=== PATIENT | female | born 2000 | race Caucasian/White ===

== ENCOUNTER 2019-07-12 15:02 | Emergency (ER) | payer OTHER ==
[~2019-07-12] VITALS: Ht 162.6 cm; Wt 65.3 kg
[2019-07-12] MEDS ORDERED: METOCLOPRAMIDE INJ 10MG/2ML VIAL (J2765) IV ONE (17:30)
[2019-07-12 18:04] LABS: BASO % 0.5 % (0.0-1.0); EOS # 0.1 10^3/uL (0.0-0.5); EOS % 0.9 % (0.0-3.0); HEMATOCRIT 40.9 % (36.0-47.0); LYMPH # 1.8 10^3/uL (1.5-5.0); LYMPH % 23.7 % (24.0-44.0); MEAN CORPUSCULAR HEMOGLOBIN 27.2 pg (27.0-33.0); MEAN CORPUSCULAR HGB CONC 31.8 g/dl (32.0-36.5); MEAN CORPUSCULAR VOLUME 85.6 fl (80.0-96.0); MONO # 0.4 10^3/uL (0.0-0.8); MONO % 5.2 % (0.0-5.0); NEUTROPHILS # 5.3 10^3/uL (1.5-8.5); NEUTROPHILS % 69.4 % (36.0-66.0); PLATELET COUNT, AUTOMATED 271 10^3/uL (150-450); RED BLOOD COUNT 4.78 10^6/uL (4.00-5.40); WHITE BLOOD COUNT 7.6 10^3/uL (4.0-10.0)
[2019-07-12 19:39] VITALS: BP 105/62
== END 2019-07-12 19:50 | disposition home or self-care (01) ==
LOC: M ED 15:02
DX: O21.9 Vomiting of pregnancy, unspecified (principal); Z3A.01 Less than 8 weeks gestation of pregnancy
CPT/HCPCS: 80047; 84702; 85025; 96374; 99284; J2765

== ENCOUNTER → 2020-02-03 | Outpatient (CLI) | payer OTHER ==
[~2020-02-03] MED LIST: DIBU10OI TOP; DOCU100C16 PO; IBUP80TA PO; IRON27TA2 PO; MULTTAB20 PO; NON-325T5 PO; ONDA4TAB6 PO; SERT-141 PO; VITA250T4 PO
[2020-03-25 20:43] LABS: APPEARANCE, URINE CLEAR (CLEAR); BACTERIA, URINE AUTO NEGATIVE (NEGATIVE); BILIRUBIN, URINE AUTO NEGATIVE (NEGATIVE); BLOOD, URINE BLOOD NEGATIVE (NEGATIVE); COLOR, URINE STRAW (YELLOW); GLUCOSE, URINE (UA) AUTO NEGATIVE (NEGATIVE); KETONE, URINE AUTO NEGATIVE (NEGATIVE); LEUKOCYTE ESTERASE, URINE AUTO NEGATIVE (NEGATIVE); NITRITE, URINE AUTO NEGATIVE (NEGATIVE); PROTEIN, URINE AUTO NEGATIVE (NEGATIVE); RBC, URINE AUTO 0 /HPF (0-3); SPECIFIC GRAVITY URINE AUTO 1.005 (1.002-1.035); SQUAMOUS EPITHELIAL CELL UR AU 2 /HPF (0-6); UROBILINOGEN, URINE AUTO 0.2 mg/dL (0.0-2.0); WBC, URINE AUTO 1 /HPF (0-3)
== END ==
LOC: M LDO 17:00
PROVIDERS: ATTEND Obstetrics & Gynecology
DX: O26.893 Other specified pregnancy related conditions, third trimester (principal); N88.9 Noninflammatory disorder of cervix uteri, unspecified; Z3A.34 34 weeks gestation of pregnancy
CPT/HCPCS: 59025; 81001; 87086; 87210; G0378; G0463

== ENCOUNTER → 2020-02-06 | Outpatient (CLI) | payer OTHER | LOC: M LDO 01:55 | PROVIDERS: ATTEND Obstetrics & Gynecology | DX: O47.03 False labor before 37 completed weeks of gestation, third trimester (principal); Z3A.35 35 weeks gestation of pregnancy | CPT/HCPCS: 59025; G0378; G0463 ==

== ENCOUNTER 2020-02-25 03:15 | Outpatient (CLI) | payer OTHER ==
[~2020-02-25] VITALS: Ht 157.5 cm; Wt 85.2 kg
[2020-02-25] MEDS ORDERED: FLUCONAZOLE 50MG TABLET PO ONE (04:15)
--- NOTE | 2020-02-25 04:15 | IPNPDOC ---
Text Note Date of Service The patient was seen on 02/25/20. NOTE S: Patient had a few contractions. No LOF. No VB. No headaches or visual changes. +FM. O: VSS WNL ABD gravid, NT SVE 2/50/-3, thick white clumpy discharge FHT: cat 1, 120s, reactive, no decels, irregular contractions A/P: Fetus reassuring. Not in active labor. Ashanti infection. Diflucan 150mg PO. Given strict labor and SROm precautions. Has f/u 02/26/2020. Piper Sanabria MD Feb 25, 2020 04:15
== END 2020-02-25 04:40 | disposition home or self-care (01) ==
LOC: M LDO 03:15
PROVIDERS: ATTEND Obstetrics & Gynecology
DX: O99.89 Other specified diseases and conditions complicating pregnancy, childbirth and the puerperium (principal); B37.3 Candidiasis of vulva and vagina; Z3A.00 Weeks of gestation of pregnancy not specified
CPT/HCPCS: 59025; G0378; G0463

== ENCOUNTER 2020-03-04 09:13 | Inpatient (IN) | payer OTHER ==
[2020-03-04] VITALS (63 sets, daily range): BP systolic 109–190; BP diastolic 61–94
[~2020-03-04] VITALS: Ht 162.6 cm; Wt 85.5 kg
[2020-03-04] MEDS ORDERED: IRON27TA2 PO (09:38)
[2020-03-04] MEDS ORDERED: NON-325T5 PO (09:38)
[2020-03-04] MEDS ORDERED: VITA250T4 PO (09:38)
[2020-03-04] MEDS ORDERED: MULTTAB20 PO (09:38)
[2020-03-04] MEDS ORDERED: MAGNESIUM SULFATE 4% INJ 20GM/500ML (40MG/ML) As Ordered ONE (09:58)
[2020-03-04] MEDS ORDERED: MAGNESIUM *L&D* 4GM/100ML BAG (40MG/ML) As Ordered ONE (09:58)
[2020-03-04] MEDS ORDERED: LABETALOL 100MG/20ML VIAL As Ordered ONE (09:58)
[2020-03-04] MEDS ORDERED: MAG Sulf (L&D) 4 GM/100 ML 4 GM in IV 1 EA IV ONE (10:15)
[2020-03-04] MEDS ORDERED: OXYTOCIN DRIP 30 UNITS in IV 1 EA IV SCH (10:15)
[2020-03-04] MEDS ORDERED: LABETALOL 100MG/20ML VIAL IV ONE (10:15)
[2020-03-04] MEDS ORDERED: CALCIUM GLUCONATE 1,000 MG in D5W MINI-BAG PLUS 100 ML IV PRN (10:15)
[2020-03-04] MEDS: LR 1,000 ML IV SCH ×2 (10:45→16:04)
[2020-03-04] MEDS: MAG Sulf (OBGYN) 20GM/500ML 20,000 MG in IV 1 EA IV SCH ×2 (11:00→20:36)
[2020-03-04 11:23] LABS: BASO # 0.1 10^3/uL (0.0-0.2); BASO % 0.5 % (0.0-1.0); EOS % 0.2 % (0.0-3.0); HEMATOCRIT 32.4 % (36.0-47.0); HEMOGLOBIN 10.3 g/dl (12.0-15.5); LYMPH % 18.9 % (24.0-44.0); MEAN CORPUSCULAR HEMOGLOBIN 25.1 pg (27.0-33.0); MEAN CORPUSCULAR HGB CONC 31.8 g/dl (32.0-36.5); MONO # 0.6 10^3/uL (0.0-0.8); MONO % 5.3 % (0.0-5.0); NEUTROPHILS # 7.7 10^3/uL (1.5-8.5); PLATELET COUNT, AUTOMATED 212 10^3/uL (150-450); WHITE BLOOD COUNT 10.4 10^3/uL (4.0-10.0)
[2020-03-04 11:50] LABS: ALT/SGPT 15 U/L (12-78); BILIRUBIN,TOTAL 0.2 MG/DL (0.2-1.0); CREATININE FOR GFR 0.67 MG/DL (0.55-1.30); GLOMERULAR FILTRATION RATE > 60.0 (>60); LDH LACTATE DEHYDROGENASE 243 U/L (84-246); URIC ACID 6.8 MG/DL (2.6-6.0)
--- NOTE | 2020-03-04 12:10 | HPEPDOC ---
Obstetrical History & Physical General Date of Admission Mar 04, 2020 at 09:57 History of Present Illness 19YO MARTITA [id number] @39+1 presenting to labor and delivery form clinic for s evere range blood pressures with GAMBINO and pedal edema x 1 week. Denies vision changes or RUQ pain Chief Complaint: Pre-eclamsia (PT TRANSFERRED FROM CLINIC) Information Provided By: Patient Age: 19 : 1 Term: 0 Pre-term: 0 Abortions: 0 Livin Care Care: Good Care Dating Final EDC: Mar 10, 2020 Final EDC for Daily Update: Mar 10, 2020 Final EDC by: LMP LMP: Jun 04, 2019 1st Trimester Date: Aug 07, 2019 Weeks + Days: 39 (+1) Estimated Date of Confinement: Mar 10, 2020 EGA at Admission: 39 (+1) Antepartum Course Diagnos(e)s Excessive weight gain in Height (inches): 64 Pre- weight (lbs.): 135 Admission Weight (lbs.): 189 Change in Weight (lbs.): 54 Past Medical History Past Obstetrical History : Past Obstetrical History: Primgravida Past Medical History Medical History concussion, broken fingers, insomnia, headaches Surgical History: [place] teeth Family History Significant Family History: Diabetes (PGM), Heart disease (MGF), Hypertension (mother with GHT) Social History Marital Status: Family situation: Spouse/partner home Psychosocial History: No pertinent psych hx * Smoker: non-smoker Alcohol: Denies Drugs: denies Abuse Violence Screening Have you been hit/kicked/slapp: No Have you been sexually assault: No Imunizations Tdap status: current Influenza Status: declined Allergies Coded Allergies: Penicillins (Verified Allergy, Unknown, 03/04/20) Pt states that her parents told her that she has an allergy, denies having a reaction to her knowledge shellfish derived (Verified Allergy, Unknown, 03/04/20) pt denies any reactions to iodine associated with this Medications Scheduled Ascorbic Acid (Vitamin C) 250 Mg Tablet, 1 TAB PO DAILY Ferrous Gluconate (Iron) 236 Mg Tablet, 1 TAB PO DAILY No122/Iron/Folic Acid ( Multi Tablet) 1 Each Tablet, 1 TAB PO DAILY Scheduled PRN Acetaminophen (Acetaminophen) 325 Mg Tablet, 325 MG PO Q4-6HP PRN for pain or fever Physical Examination Physical Examination GENERAL: Alert and oriented times three. BREAST: . ABDOMEN: Gravid and non-tender to touch. FETUS: Is vertex (VTX) by sterile vaginal examination (SVE) 350/-2, fetus is vertex (VTX) by Jorge. EFW 3400gm HEART RATE: Regular rate and rhythm. LUNGS: Clear to auscultation (CTA). EXTREMITIES: +2 pedal edema. No clonus. Deep tendon reflexes (DTRs) + . Other physical findings denies vision changes, RUQ pain Vital Signs/I&O Vital Signs Date Time Temp Pulse Resp B/P (MAP) Pulse Ox O2 Delivery O2 Flow Rate FiO2 03/04/20 09:44 98.2 55 18 169/94 (119) Laboratory Data 24H LABS Laboratory Tests 2 03/04/20 10:06: Serology Scanned Report Hepatitis B Testing Pertinent Laboratoy Data Blood Type: A+ RBC Antibody Screen: Negative HIV: Negative Hepatitis B: Negative Rapid Plasma Reagin: Nonreactive Rubella: Immune Varicella: Immune Chlamydia/Gonorrhea: Negative Group B Streptococcus: Negative Quad Screen Test: Negative ([id number] neg) Cystic Fibrosis: Negative Glucose Tolerance Test: 109 Diag/Inter Therapy Excessive weight gain in (54#) Anatomy Ultrasound Ultrasound Date: November 06, 2019 Placenta Location: Anterior Normal Anatomy: Yes Placenta Previa: No Estimated Weight (grams): 526 Steroid Therapy Steroid Therapy: No Vaginal Examination Dilation: 3 cm Effacement: 50% Station: -2 Cervical Consistency: Medium Cervical Position: Posterior Presentation: Cephalic presentation Position: Vertex (occiput) Assessment Heart Rate (FHR): 115 Variability: Moderate Accelerations: Present Decelerations: None Tocometer Contractions: Yes Frequency: irregular, every 3-7 min. Multi-drug resistant Organism: No history of MDRO Assessment/Plan Assessment Patient is a 19-year-old (G)1 para (P)0-0-0-0 at 39+1 weeks by 9+5-week ultrasound. Presents to Labor and Delivery (L&D) from the clinic for pre- eclampsia with severe range blood pressures in the clinic and headache and pedal edema for the last week. Plan Admit and orient. Wellness Director and consent. Diet: clear liquids. Group B Streptococcus (GBS) [negative]. Labs and intravenous (IV) per unit protocol. Counseled on Pitocin and induction of labor (IOL). Lactated Ringers (LR): titrated to 125 mL. Anticipate [normal spontaneous delivery ()]. Pain management as requested by patient C-S as appropriate. Labor and Delivery Counseling Discussed risks of pre-eclampsia, hemorrhage, magnesium sulfate, blood transfusion, induction of labor methods, and delivery; to include vaginal delivery, operative deliveries (vacuum and section), and episiotomy. JANI BRICENO CNM Mar 04, 2020 11:48
[2020-03-04 14:07] LABS: APPEARANCE, URINE CLEAR (CLEAR); BACTERIA, URINE AUTO 1+ (NEGATIVE); BILIRUBIN, URINE AUTO NEGATIVE (NEGATIVE); BLOOD, URINE BLOOD 2+ (NEGATIVE); COLOR, URINE YELLOW (YELLOW); GLUCOSE, URINE (UA) AUTO NEGATIVE (NEGATIVE); KETONE, URINE AUTO NEGATIVE (NEGATIVE); LEUKOCYTE ESTERASE, URINE AUTO NEGATIVE (NEGATIVE); MUCUS, URINE SMALL (NEGATIVE); NITRITE, URINE AUTO NEGATIVE (NEGATIVE); PROTEIN, URINE AUTO 2+ mg/dL (NEGATIVE); RBC, URINE AUTO 62 /HPF (0-3); SPECIFIC GRAVITY URINE AUTO 1.019 (1.002-1.035); SQUAMOUS EPITHELIAL CELL UR AU 0 /HPF (0-6); UROBILINOGEN, URINE AUTO 0.2 mg/dL (0.0-2.0); WBC, URINE AUTO 2 /HPF (0-3)
[2020-03-04 14:56] LABS: CREATININE,RANDOM URINE 84.6 MG/DL; TOTAL PROTEIN,RANDOM URINE 546.2 MG/DL (0.0-12.0)
--- NOTE | 2020-03-04 15:01 | IPNPDOC ---
Obstetrical Progress Note Date of Service Mar 04, 2020 Subjective Pt states feeling increasing pressure with contractions and continued loss of amniotic fluid. States mild headache returning in the last hour. Denies vision changes, RUQ pain. Objective Vital Signs Date Time Temp Pulse Resp B/P (MAP) Pulse Ox O2 Delivery O2 Flow Rate FiO2 03/04/20 14:23 86 133/77 (95) 03/04/20 09:44 98.2 18 Assessment Heart Rate (FHR): 110 Variability: Moderate Accelerations: Positive Decelerations: Variable Heart Rate Tracing: Category II Tocometer Contractions: Yes Frequency: other (every 2-3 min) Assessment and Plan Age: 19 : 1 Term: 0 Pre-term: 0 Abortions: 0 Livin EGA at Admission: 39 (+1) Status: Reassuring Group B Streptococcus: Negative Anticipate: Vaginal Delivery Additional Comments normal reflexes on exam, clear amniotic fluid, pt coached through contractions, denies further concerns at this time. JANI BRCIENO CNM Mar 04, 2020 15:01
[2020-03-04] MEDS ORDERED: FENTANYL 2MCG/ML ROPIVACAINE 0.2% IN 0.9% NACL 100ML IVBAG As Ordered ONE (15:22)
[2020-03-04] MEDS: ACETAMINOPHEN 500 MG TAB PO PRN ×2 (15:46→21:18)
--- NOTE | 2020-03-04 17:09 | IPNPDOC ---
Obstetrical Progress Note Date of Service Mar 04, 2020 Subjective Pt resting comfortably after epidural anesthesia Objective Vital Signs Date Time Temp Pulse Resp B/P (MAP) Pulse Ox O2 Delivery O2 Flow Rate FiO2 03/04/20 16:00 93 137/82 (100) 03/04/20 09:44 98.2 18 Assessment Heart Rate (FHR): 120 Variability: Moderate Accelerations: Positive Decelerations: None Heart Rate Tracing: Category I Tocometer Contractions: Yes Frequency: every 1-3 min. Duration: greater than 60 seconds Strength: palpated as moderate Sterile Vaginal Examination Dilation: 5 cm (clear amniotic fluid noted at the time of exam) Effacement (%): 90% Station: -2 Cervical Consistency: Medium Cervical Position: Middle Postion/Presentation: Cephalic presentation Assessment and Plan Age: 19 : 1 Term: 0 Pre-term: 0 Abortions: 0 Livin EGA at Admission: 39 (+1) Status: Reassuring Group B Streptococcus: Negative JANI BRICENO CNM Mar 04, 2020 17:09
[2020-03-04] MEDS ORDERED: diphenhydrAMINE 50MG/ML VIAL (J1200) IV PRN (17:30)
[2020-03-04] MEDS ORDERED: REFRIGERATOR IV KEYS XX PRN (17:30)
[2020-03-04] MEDS ORDERED: EPIDURAL COMMENT XX SCH (17:30)
[2020-03-04] MEDS ORDERED: NALOXONE INJ 0.4MG/1ML VIAL (J2310 PER 1MG) IV PRN (17:30)
[2020-03-04] MEDS ORDERED: LACTATED RINGER'S 1000 ML IV PRN (17:30)
[2020-03-04] MEDS ORDERED: ePHEDrine SULFATE 25 MG/5 ML(5MG/ML) SYRINGE IV PRN (17:30)
[2020-03-04] MEDS ORDERED: FENTANYL/ROPIVACAINE/NACL BAG 100 ML EPIDURAL SCH (17:30)
[2020-03-04] MEDS ORDERED: ONDANSETRON 4MG/2ML VIAL IV PRN (17:30)
[2020-03-04] MEDS ORDERED: EPIDURAL/PCA KEYS XX PRN (17:30)
--- NOTE | 2020-03-04 21:57 | IPNPDOC ---
Obstetrical Progress Note Date of Service Mar 04, 2020 Subjective Patient feeling comfortable. Denies GAMBINO, chest pain, SOB, visual changes, RUQ pain. Objective Vital Signs Date Time Temp Pulse Resp B/P (MAP) Pulse Ox O2 Delivery O2 Flow Rate FiO2 03/04/20 20:00 97.3 17 03/04/20 19:46 75 114/66 (82) Assessment Heart Rate (FHR): 120 Variability: Moderate Accelerations: None Decelerations: Variable, Intermittent Heart Rate Tracing: Category II Tocometer Contractions: Yes Frequency: regular, every 1-3 min. Sterile Vaginal Examination Dilation: complete Effacement (%): 100% Station: +1 Cervical Consistency: Soft Cervical Position: Anterior Postion/Presentation: Cephalic presentation Assessment and Plan Status: Reassuring Group B Streptococcus: Negative Anticipate: Vaginal Delivery Additional Comments Patient now c/c/+1. Will begin pushing for expectant . MICHELLE PRADO DO Mar 04, 2020 21:57
--- NOTE | 2020-03-04 23:54 | DNPDOC ---
[facility] Delivery Note Delivery Note DATE OF DELIVERY: [id number] PREDELIVERY DIAGNOSIS: 39+1/7 weeks' gestation. Preeclampsia with severe features. POST DELIVERY DIAGNOSIS: Delivered. PROCEDURE: Spontaneous vaginal delivery/ section. HYDROLOGY TECHNICIAN: Dr. Michelle Prado ANESTHESIA: Epidural, local ESTIMATED BLOOD LOSS: 300 mL. FINDINGS: 7 pound 6 ounce 3340g female infant, Score 8/9. DELIVERY SUMMARY: 19yo at 39+1wks admitted for induction of labor for preeclampsia with severe features. Patient found to be c/c/+3 and pushing well. Patient prepped for delivery and assisted to lithotomy position. With excellent maternal effort, spontaneous vaginal delivery of a viable term female infant. Presentation was OA with restitution to ROT with left shoulder anterior position. Anterior shoulder and body delivered without difficulty. No nuchal/foot/body cord noted. Infant placed on maternal abdomen. Post-delivery meconium appreciated with infant on maternal abdomen. Infant with spontaneous cry and care transferred to Team. Pitocin IV bolus initiated. After 6 minutes of delayed cord clamping, three vessel cord clamped x2 and cut by FOB. Third stage spontaneous with intact placenta. Fundal massage revealed firm uterine tone. Inspection revealed bilateral labial lacerations that were repaired with 4-0 monocryl in running, non-locking fashion. The inferior aspect of the labial lacerations were repaired using 2-0 vicryl in running, locking fashion with good hemostasis achieved. EBL 300ml. Mother and infant stable and bonding upon my leaving the room. MICHELLE PRADO DO Mar 04, 2020 23:53
[2020-03-05] VITALS (32 sets, daily range): BP systolic 120–151; BP diastolic 66–93
[2020-03-05] MEDS: LR 1,000 ML IV SCH ×3 (04:30→18:01)
[2020-03-05 05:53] LABS: HEMATOCRIT 30.7 % (36.0-47.0); MEAN CORPUSCULAR HEMOGLOBIN 25.5 pg (27.0-33.0); MEAN CORPUSCULAR HGB CONC 32.6 g/dl (32.0-36.5); MEAN CORPUSCULAR VOLUME 78.3 fl (80.0-96.0); PLATELET COUNT, AUTOMATED 218 10^3/uL (150-450); RED BLOOD COUNT 3.92 10^6/uL (4.00-5.40); WHITE BLOOD COUNT 16.3 10^3/uL (4.0-10.0)
[2020-03-05] MEDS: MAG Sulf (OBGYN) 20GM/500ML 20,000 MG in IV 1 EA IV SCH ×2 (06:02→16:11)
--- NOTE | 2020-03-05 09:01 | IPNPDOC ---
Progress Note Date of Service: Mar 05, 2020 Day#: 1 Progress Note SUBJECT: 19yo PPD#1 s/p over b/l labial lacs after IOL for preeclampsia with severe features. Patient reports no GAMBINO, chest pain, SOB, visual changes, RUQ pain. She does endorses feet swelling. Reports is going well and PO pain meds are controlling her pain. OBJECTIVE: VITAL SIGNS: BP normotensive to mild-ranging, afebrile Alert and oriented times three. RESP: no exaggerated respiratory effort appreciated. CARDS: well-perfused Abdomen: Fundus firm at U-1. Soft, NTTP. : mild edema, lochia scant Ext: +2/4 pitting pedal edema bilaterally ASSESSMENT: Elsa is a 19yo PPD#1 s/p after IOL for preeclampsia with severe features. Patient clinically stable. PLAN: 1. Continue magnesium until 24hrs s/p delivery (2200 on 05MAR2020) 2. Tylenol and Motrin for pain. 3. Encourage breast feeding with support PRN 4. Monitor vitals closely, start antihypertensives if severe-ranging BP 5. Discontinue pink catheter and allow ambulation once Magnesium discontinued 6. Transfer to MBU when clinically stable and nursing support allows 7. Continue inpatient mgmt at this time, anticipate discharge home on AM if patient has BP control. VS, I&O, 24H, Devbone Vital Signs/I&O Vital Signs Date Time Temp Pulse Resp B/P (MAP) Pulse Ox O2 Delivery O2 Flow Rate FiO2 03/05/20 08:10 97.1 93 16 134/77 (96) 03/05/20 08:10 Room Air I&O- Last 24 Hours up to 6 AM 03/05/20 06:00 Intake Total 3601.4 ml Output Total 2570 ml Balance 1031.4 ml Laboratory Data 24H LABS Laboratory Tests 2 03/04/20 10:06: Serology Scanned Report Hepatitis B Testing 03/04/20 10:50: Immature Granulocyte % (Auto) 1.1, Neutrophils (%) (Auto) 74.0H, Lymphocytes (%) (Auto) 18.9L, Monocytes (%) (Auto) 5.3H, Eosinophils (%) (Auto) 0.2, Basophils (%) (Auto) 0.5, Neutrophils # (Auto) 7.7, Lymphocytes # (Auto) 2.0, Monocytes # (Auto) 0.6, Eosinophils # (Auto) 0.0, Basophils # (Auto) 0.1, Nucleated Red Blood Cells % (auto) 0.0, Glomerular Filtration Rate > 60.0, Uric Acid 6.8H, Total Bilirubin 0.2, Aspartate Amino Transf (AST/SGOT) 21, Alanine Aminotransferase (ALT/SGPT) 15, Lactate Dehydrogenase 243, Syphilis Serology N ONREACTIVE, Hepatitis B Surface Antigen (Rapid) NEGATIVEL 03/04/20 13:19: Urine Color YELLOW, Urine Appearance CLEAR, Urine pH 6.0, Urine Specific Sharon 1.019, Urine Protein 2+H, Urine Glucose (Auto)(UA) NEGATIVE, Urine Ketones (Auto) NEGATIVE, Urine Blood 2+H, Urine Nitrite NEGATIVE, Urine Bilirubin NEGATIVE, Urine Urobilinogen 0.2, Urine Leukocyte Esterase (Auto) NEGATIVE, Urine WBC (Auto) 2, Urine RBC (Auto) 62H, Urine Hyaline Casts (Auto) 0, Urine Bacteria (Auto) 1+H, Urine Squamous Epithelial Cells 0, Urine Mucus (Auto) SMALL, Urine Sperm (Auto) , Urine Random Creatinine 84.6, Urine Random Total Protein 546.2H 03/05/20 05:42: Nucleated Red Blood Cells % (auto) 0.0 CBC/BMP Laboratory Tests 03/04/20 10:50 03/05/20 05:42 MICHELLE PRADO DO Mar 05, 2020 09:01
[2020-03-06 02:00] VITALS: BP 133/93
[2020-03-06] MEDS: LR 1,000 ML IV SCH (02:01)
[2020-03-06 06:00] VITALS: BP 136/85
[2020-03-06 06:50] LABS: HEMATOCRIT 30.5 % (36.0-47.0); HEMOGLOBIN 9.6 g/dl (12.0-15.5); MEAN CORPUSCULAR HEMOGLOBIN 25.5 pg (27.0-33.0); MEAN CORPUSCULAR HGB CONC 31.5 g/dl (32.0-36.5); MEAN CORPUSCULAR VOLUME 81.1 fl (80.0-96.0); PLATELET COUNT, AUTOMATED 244 10^3/uL (150-450); RED BLOOD COUNT 3.76 10^6/uL (4.00-5.40)
--- NOTE | 2020-03-06 07:58 | IPNPDOC ---
Progress Note Date of Service: Mar 06, 2020 Day#: 1 Progress Note SUBJECT: Doing well w/o complaints. s/p mag sulfate. No headaches, visual changes. Ambulating, voiding and pain is well-controlled. Reports minimal lochia. +breast feeding OBJECTIVE: Alert and oriented times three. Abdomen: Fundus firm at U-2. Soft, NTTP. Ext: neg calf tenderness. ASSESSMENT: day #1 status post normal spontaneous vaginal delivery /preeclampsia. Recovering in stable condition. PLAN: 1. Continue routine care 2. Discharge plans for tomorrow VS, I&O, 24H, Fishbone Vital Signs/I&O Vital Signs Date Time Temp Pulse Resp B/P (MAP) Pulse Ox O2 Delivery O2 Flow Rate FiO2 03/06/20 06:00 98.7 79 20 136/85 (102) 97 Room Air I&O- Last 24 Hours up to 6 AM 03/06/20 05:59 Intake Total 2693.7 ml Output Total 3400 ml Balance -706.3 ml Laboratory Data 24H LABS Laboratory Tests 2 03/06/20 06:30: Nucleated Red Blood Cells % (auto) 0.0 CBC/BMP Laboratory Tests 03/06/20 06:30 ROSALINA LYNNE MD. Mar 06, 2020 07:58
[2020-03-06] MEDS ORDERED: INFLUENZA QUADRIVALENT PF VACCINE 0.5ML SYRINGE IM ONE (09:00)
[2020-03-06 10:00] VITALS: BP 129/85
[2020-03-06 14:00] VITALS: BP 139/92
[2020-03-06 18:00] VITALS: BP 138/72
[2020-03-06 21:51] VITALS: BP 158/90
[2020-03-07 02:00] VITALS: BP 156/98
[2020-03-07 05:55] VITALS: BP 140/90
[2020-03-07] MEDS ORDERED: IBUP80TA PO (07:00)
[2020-03-07] MEDS ORDERED: DOCU100C16 PO (07:00)
[2020-03-07] MEDS ORDERED: DIBU10OI TOP (07:00)
[2020-03-07 07:42] LABS: HEMATOCRIT 28.6 % (36.0-47.0); HEMOGLOBIN 8.9 g/dl (12.0-15.5); MEAN CORPUSCULAR HEMOGLOBIN 25.3 pg (27.0-33.0); MEAN CORPUSCULAR HGB CONC 31.1 g/dl (32.0-36.5); MEAN CORPUSCULAR VOLUME 81.3 fl (80.0-96.0); PLATELET COUNT, AUTOMATED 217 10^3/uL (150-450); RED BLOOD COUNT 3.52 10^6/uL (4.00-5.40); WHITE BLOOD COUNT 13.3 10^3/uL (4.0-10.0)
[2020-03-07 10:19] VITALS: BP 135/87
--- NOTE | 2020-03-26 13:23 | DSES ---
DATE OF ADMISSION: 03/04/2020 DATE OF DISCHARGE: 03/07/2020 This lady is a 19-year-old 1, now para 1, who was admitted through the clinic because of severe ranged blood pressures and pedal edema. No visual changes. The plan of care was risks of preeclampsia, use of magnesium sulfate, and induction of labor. She had a spontaneous vaginal delivery with epidural in place and local, a live female 7 pounds 6 ounces (3340 grams) with Apgars of 8 and 9 in one and five minutes respectively. On her second day, we discussed phlebitis, cystitis, mastitis, metritis, and cellulitis, diet, exercise, pain management, perineal, breast, and wound care. She has been off her magnesium sulfate for over 24 hours. Her discharge blood pressure 140/90, respiratory rate 18, pulse 92 and temperature 98.7. Her admitting hemoglobin 10.3, hematocrit 32.4 and platelets 212,000. Discharge hemoglobin 9.6, hematocrit 30.5 and platelets 244,000. The rest of her examination was unremarkable. Normocephalic, atraumatic. Neck full range of motion. Pupils equal and reactive to light. Distal pulses are symmetric. No evidence of DVT, PE or superficial phlebitis. Chest is clear bilaterally to bases, no wheezes or rhonchi. No CVA tenderness. Abdomen is soft, uterus two below, lochia is moderate, four quadrant bowel sounds are noted. Perineum is intact. We discussed the fact that her meds are at [facility]. Second, that she is have blood pressure checked in the clinic in 72 hours and then a six week checkup. Presently, she has no headache. No visual disturbances. She is diuresing. She is and anxious to get home. We discussed the risks of return of preeclampsia up to three days, and signs and symptoms were reviewed with the patient. Patient expressed understanding of the above. A thirty minute discussion, and all questions were answered. Patient was discharged improved. YOLANDA
== END 2020-03-07 11:00 | disposition home or self-care (01) | DRG 807 ==
LOC: M LDO 09:13 → M LDI 09:57 → M OBS 03-05 22:50
PROVIDERS: ADMIT Registered Nurse
PROC: 10E0XZZ Delivery of Products of Conception, External Approach (ICD-10-PCS; principal; 2020-03-04)
PROC: 0HQ9XZZ Repair Perineum Skin, External Approach (ICD-10-PCS; 2020-03-04)
PROC: 3E033VJ Introduction of Other Hormone into Peripheral Vein, Percutaneous Approach (ICD-10-PCS; 2020-03-04)
DX: O14.14 Severe pre-eclampsia complicating childbirth (principal); Z37.0 Single live birth; Z3A.39 39 weeks gestation of pregnancy; O70.0 First degree perineal laceration during delivery

== ENCOUNTER 2020-05-10 18:36 | Emergency (ER) | payer OTHER ==
[~2020-05-10] VITALS: Ht 162.6 cm; Wt 69.3 kg
[~2020-05-10 18:36] MED LIST changes: -ONDA4TAB6 PO; -SERT-141 PO
[2020-05-10] MEDS ORDERED: SERT-141 PO (18:43)
[2020-05-10] MEDS ORDERED: ONDANSETRON 4MG/2ML VIAL IV ONE (19:15)
[2020-05-10] MEDS ORDERED: NS 1,000 ML IV ONE (19:15)
[2020-05-10 20:15] LABS: BASO # 0.1 10^3/uL (0.0-0.2); BASO % 0.6 % (0.0-1.0); EOS # 0.1 10^3/uL (0.0-0.5); EOS % 0.7 % (0.0-3.0); HEMATOCRIT 37.1 % (36.0-47.0); HEMOGLOBIN 11.2 g/dl (12.0-15.5); LYMPH # 2.2 10^3/uL (1.5-5.0); LYMPH % 21.6 % (24.0-44.0); MEAN CORPUSCULAR HEMOGLOBIN 24.2 pg (27.0-33.0); MEAN CORPUSCULAR HGB CONC 30.2 g/dl (32.0-36.5); MEAN CORPUSCULAR VOLUME 80.3 fl (80.0-96.0); MONO # 0.5 10^3/uL (0.0-0.8); MONO % 4.8 % (0.0-5.0); NEUTROPHILS # 7.2 10^3/uL (1.5-8.5); NEUTROPHILS % 72.1 % (36.0-66.0); PLATELET COUNT, AUTOMATED 301 10^3/uL (150-450); RED BLOOD COUNT 4.62 10^6/uL (4.00-5.40)
--- NOTE | 2020-05-10 20:37 | REPVR ---
PROCEDURE INFORMATION: Exam: US Nonobstetric Pelvis; Complete Exam date and time: 05/10/2020 7:48 PM Age: 19 years old Clinical indication: Other: Vaginal spotting; Additional info: Iud placed 3 weeks ago/abn bleeding TECHNIQUE: Imaging protocol: Transabdominal pelvic nonobstetric ultrasound. Complete exam. Real time ultrasound with image documentation. COMPARISON: No relevant prior studies available. FINDINGS: Uterus/cervix: The uterus measures 6.8 x 2.7 x 5.5 cm. The uterus is anteverted. No uterine mass. The endometrial stripe measures 0.4 cm in thickness, which is within normal limits. There is an echogenic band within the endometrial canal, with posterior acoustic shadowing. This is consistent with an IUD. Right adnexa: The right ovary measures 3.2 x 1.5 x 2.2 cm. Small hypoechoic follicles are identified within the right ovary. Vascular flow is demonstrated within the right ovary. Left adnexa: The left ovary measures 2.5 x 1.8 x 1.5 cm. Vascular flow is demonstrated within the left ovary. Small left ovarian follicles identified. Intraperitoneal space: No intraperitoneal free fluid. Bladder: Unremarkable, as visualized. IMPRESSION: 1. An IUD is visualized within the endometrial canal. 2. The endometrial stripe is normal in thickness. 3. Additional findings described above. Electronically signed by: Karri Yu On 05/10/2020 20:36:34 PM
[2020-05-10 20:41] LABS: ALBUMIN 4.2 GM/DL (3.2-5.2); ALT/SGPT 78 U/L (12-78); BILIRUBIN,DIRECT < 0.1 MG/DL (0.0-0.2); BILIRUBIN,TOTAL 0.1 MG/DL (0.2-1.0); LIPASE 191 U/L (73-393); TOTAL PROTEIN 8.3 GM/DL (6.4-8.2)
--- NOTE | 2020-05-10 21:42 | REPVR ---
PROCEDURE INFORMATION: Exam: US Abdomen, Limited; Right Upper Quadrant Exam date and time: 05/10/2020 9:16 PM Age: 19 years old Clinical indication: Abnormal findings; Abnormal lab test; Abnormal function test of other organs/systems; Additional info: Nausea/elevated lfts TECHNIQUE: Imaging protocol: US abdomen. Real time ultrasound with image documentation. Limited exam focused on the right upper quadrant. COMPARISON: No relevant prior studies available. FINDINGS: Liver: Unremarkable as visualized. No masses. Gallbladder: There is a negative sonographic Souza sign. Mild hypoechoic sludge is visualized within the gallbladder. No shadowing gallstones. The gallbladder wall thickness is at the upper limits of normal. No pericholecystic fluid. Common bile duct: The common bile duct measures 3-4 mm in diameter, which is within normal limits. Pancreas: Evaluation of the pancreas is limited by bowel gas. Right kidney: The right kidney measures 10.6 x 5.1 x 3.8 cm. No hydronephrosis of the right kidney. Small hyperechoic foci are identified within the right renal sinus, although there is no significant posterior acoustic shadowing to confirm nephrolithiasis. IMPRESSION: 1. Mild sludge is visualized within the gallbladder. No shadowing gallstones. The gallbladder wall thickness is at the upper limits of normal. 2. No abnormal dilatation of the common bile duct. 3. No hydronephrosis of the right kidney. Small hyperechoic foci are identified within the right renal sinus, although there is no significant posterior acoustic shadowing to confirm nephrolithiasis. 4. Additional findings described above. COMMENTS: Consistent with the [employer]'s Incidental Findings Committee white paper (J Am Ion Radiol 2018): Any incidental renal lesion less than 1 cm or classified as too small to characterize, or any incidental cystic renal lesion characterized as simple-appearing, is likely benign. No follow-up imaging is recommended for these lesions per consensus recommendations based on imaging criteria. Electronically signed by: Karri Yu On 05/10/2020 21:41:39 PM
[2020-05-10] MEDS ORDERED: ONDA4TAB6 PO (22:06)
[2020-05-10 22:10] VITALS: BP 123/71
--- NOTE | 2020-05-13 11:55 | ED PDOC ---
Post-Departure Follow-Up ft leonel aguilar faxed formal report of us for fu Vianney Stockton MD May 13, 2020 11:55
== END 2020-05-10 22:19 | disposition home or self-care (01) ==
LOC: M ED 18:36
DX: R53.83 Other fatigue (principal); R11.2 Nausea with vomiting, unspecified; R06.02 Shortness of breath; R51.9 Headache, unspecified; D64.9 Anemia, unspecified; Z88.0 Allergy status to penicillin; Z97.5 Presence of (intrauterine) contraceptive device; Z79.899 Other long term (current) drug therapy
CPT/HCPCS: 76705; 76856; 80047; 80076; 81001; 83690; 84702; 85025; 93976; 96361; 96374; 99284; J2405